=== PATIENT | female | born 1985 | race Asian ===

== ENCOUNTER 2016-05-17 11:59 | Emergency (ER) | payer OTHER ==
[2016-05-17 12:08] VITALS: BP 110/70
--- NOTE | 2016-05-17 12:36 | UC ---
Complaint Female HPI - HPI Summary HPI Summary: Pt has been trying to get for about 2 months. LMP 04/07/16; has 3-year- old at home, reports 30-day cycles with no history of irreg menses. HPTs were negative, also having a foul-smelling vag discharge. Had a respiratory illness around the 1st of the month and took 5 days of azithromycin. No hx of STIs, no concerns for them now. No partners outside of her , has not had other partners. Remembers having last diagnosed with a blood test, does not remember if she had positive urine tests at that time. - History Of Current Complaint Chief Complaint: [facility] Stated Complaint: PREG TEST Time Seen by Provider: 05/17/16 12:14 Hx Obtained From: Patient Hx Last Menstrual Period: 04/07/16 ?: No Onset/Duration: Gradual Onset, Lasting Days Timing: Constant Severity Initially: Mild Severity Currently: Mild Character: Not Applicable Aggravating Factor(s): Nothing Alleviating Factor(s): Nothing Associated Signs And Symptoms: Positive: Vaginal Bleeding/Discharge - Allergies/Home Medications Allergies/Adverse Reactions: Allergies Allergy/AdvReac Type Severity Reaction Status Date / Time No Known Allergies Allergy Verified 04/02/15 11:56 PMH/Surg Hx/FS Hx/Imm Hx Endocrine History Of: Denies: Diabetes Cardiovascular History Of: Denies: Hypertension, Pacemaker/ICD GI/ History Of: Denies: Renal Disease Psychological History Of: Reports: Anxiety, Depression - Surgical History Surgical History: Yes Surgery Procedure, Year, and Place: APPENDECTOMY. HEMORRHOID - Social History Alcohol Use: None Substance Use Type: None Smoking Status (MU): Never Smoked Tobacco - Immunization History Most Recent Influenza Vaccination: 2014 Most Recent Tetanus Shot: up to date Most Recent Pneumonia Vaccination: none Review of Systems Constitutional: Negative Skin: Negative Eyes: Negative ENT: Negative Respiratory: Negative Cardiovascular: Negative Gastrointestinal: Negative Genitourinary: Other - vaginal discharge Motor: Negative Neurovascular: Negative Musculoskeletal: Negative Neurological: Negative Psychological: Negative All Other Systems Reviewed And Are Negative: Yes Physical Exam Triage Information Reviewed: Yes Appearance: Well-Appearing, No Pain Distress, Well-Nourished Vital Signs: Initial Vital Signs Temp 97.5 F 05/17/16 12:03 Pulse 81 05/17/16 12:03 Resp 18 05/17/16 12:03 BP 110/70 05/17/16 12:03 Pulse Ox 98 05/17/16 12:03 Vital Signs Reviewed: Yes Eye Exam: Normal Eyes: Positive: Conjunctiva Clear ENT Exam: Normal ENT: Positive: Normal ENT inspection, Hearing grossly normal, Pharynx normal, TMs normal Dental Exam: Normal Neck exam: Normal Neck: Positive: Supple, Nontender, No Lymphadenopathy Respiratory Exam: Normal Respiratory: Positive: Chest non-tender, Lungs clear, Normal breath sounds, No respiratory distress, No accessory muscle use Cardiovascular Exam: Normal Cardiovascular: Positive: RRR, No Murmur Abdominal Exam: Normal Abdomen Description: Positive: Nontender, No Organomegaly, Soft Musculoskeletal Exam: Normal Neurological Exam: Normal Psychological Exam: Normal Skin Exam: Normal Complaint Female Dx - Differential Dx/Diagnosis Provider Diagnoses: secondary amenorrhea. vaginitis Discharge - Discharge Plan Condition: Stable Disposition: HOME Patient Education Materials: Vaginitis (ED) Referrals: Ganga Arshad MD [Primary Care Provider] - Additional Instructions: I have sent in testing for vaginal infections as well as . If any of the tests come back positive, we will call you.
== END 2016-05-17 12:53 | disposition home or self-care (01) ==
LOC: UCEAST 11:59
DX: N91.1 Secondary amenorrhea (principal); N76.0 Acute vaginitis; B96.89 Other specified bacterial agents as the cause of diseases classified elsewhere; Z32.02 Encounter for pregnancy test, result negative
CPT/HCPCS: 36415; 81025; 84702; 87480; 87491; 87510; 87591; 87661; 99212; G0463

== ENCOUNTER 2016-06-02 20:16 | Emergency (ER) | payer OTHER ==
[2016-06-02 20:36] VITALS: BP 116/78
--- NOTE | 2016-06-02 20:55 | UC ---
Pediatric GI/ HPI - HPI Summary HPI Summary: complaint of nausea that started today approx 6PM started to feel nauseated and vomited 1x denies fever one episode of diarrhea denies abdominal pain but feels nauseous denies dysuria not taking any medication for symptoms - History Of Current Complaint Chief Complaint: UC Stated Complaint: NAUSEA Time Seen by Provider: 06/02/16 20:36 Hx Obtained From: Patient - Allergies/Home Medications Allergies/Adverse Reactions: Allergies Allergy/AdvReac Type Severity Reaction Status Date / Time No Known Allergies Allergy Verified 06/02/16 20:30 Past Medical History Previously Healthy: Yes Chronic Illness History: No: Diabetes Review Of Systems Constitutional: Negative Eyes: Negative ENT: Negative Cardiovascular: Negative Respiratory: Negative Gastrointestinal: Vomiting Genitourinary: Negative Musculoskeletal: Negative Skin: Negative Neurological: Negative Psychological: Negative All Other Systems Reviewed And Are Negative: Yes Physical Exam Triage Information Reviewed: Yes Vital Signs: Initial Vital Signs Temp 98.6 F 06/02/16 20:31 Pulse 100 06/02/16 20:31 Resp 16 06/02/16 20:31 BP 116/78 06/02/16 20:31 Pulse Ox 94 06/02/16 20:31 Vital Signs Reviewed: Yes Appearance: No Pain Distress, Well-Nourished Eyes: Positive: Conjunctiva Clear ENT: Positive: Pharynx normal, TMs normal. Negative: Nasal congestion Neck: Positive: No Lymphadenopathy Respiratory: Positive: Lungs clear, Normal breath sounds, No respiratory distress Cardiovascular: Positive: RRR, No Murmur, Pulses Normal Abdomen Description: Positive: Nontender, No Organomegaly, Soft. Negative: Distended, Guarding Bowel Sounds: Hyperactive Musculoskeletal: Positive: No Edema Neurological: Positive: Alert Psychological: Positive: Normal Pediatric GI Course/Dx - Differential Dx/Diagnosis Differential Diagnosis/HQI/PQRI: Gastroenteritis Provider Diagnoses: gastroenteritis Discharge - Discharge Plan Condition: Stable Disposition: HOME Prescriptions: Ondansetron TAB* [Zofran Tab*] 4 mg PO Q6H PRN #12 tab PRN Reason: Nausea/Vomiting Patient Education Materials: Gastroenteritis (ED) Referrals: Ganga Arshad MD [Primary Care Provider] - Additional Instructions: start zofran as directed increase fluids slowly and advance diet as tolerated Take acetaminophen or ibuprofen for fever or pain Please review your discharge instructions. If your symptoms do not improve please call your primary care provider or return to urgent care
[2016-06-02] MEDS ORDERED: Ondansetron ODT TAB* 4 MG PO ONE ×2 (21:03→21:14)
== END 2016-06-02 21:30 | disposition home or self-care (01) ==
LOC: UCEAST 20:16
DX: K52.9 Noninfective gastroenteritis and colitis, unspecified (principal)
CPT/HCPCS: 99212; A9270-GY; G0463